=== PATIENT | female | born 1990 | race African-American/Black ===

== ENCOUNTER 2016-09-29 14:21 | Emergency (ER) | payer OTHER ==
[~2016-09-29] VITALS: Ht 160 cm; Wt 67.1 kg
[~2016-09-29 14:21] MED LIST: AMOXICILLIN 50500 M1 PO; BACTRIM DS TAB1 EACH PO; FLONASE 0.05%50 MCG NASAL; IBUPROFEN 600600 M1 PO; NOHOMEMEDICATIONS; PHENERGAN 25 MG25 M1 PO
[2016-09-29 14:45] LABS: URINE BILIRUBIN NEGATIVE (Negative); URINE BLOOD NEGATIVE (Negative); URINE COLOR YELLOW; URINE GLUCOSE-RANDOM* NEGATIVE (Negative); URINE KETONES TRACE (Negative); URINE NITRITE NEGATIVE (Negative); URINE PROTEIN (DIPSTICK) NEGATIVE (Negative); URINE SPECIFIC GRAVITY >= 1.030 (1.003-1.035)
[2016-09-29 14:46] LABS: BASOPHILS 0.3 % (0.0-2.0); EOSINOPHILS 0.6 % (0.0-3.0); HEMATOCRIT 38.5 % (37.0-47.0); HEMOGLOBIN 13.5 gm/dL (12.0-15.0); LYMPHOCYTES 20.2 % (24.0-44.0); MCV 85.8 fL (80.0-100.0); MONOCYTES 5.1 % (1.0-8.0); PLATELET COUNT 208 thou/uL (150-400); POLYS 73.8 % (36.0-66.0); RBC 4.49 mil/uL (4.20-5.00); RDW 13.1 % (10.5-14.5); WBC 8.2 thou/uL (4.0-11.0)
[2016-09-29 14:47] LABS: MANUAL DIFF NO
[2016-09-29 14:53] LABS: CALCIUM 9.1 mg/dL (8.5-10.1); CREATININE 0.8 mg/dL (0.6-1.3); POTASSIUM 3.9 mmol/L (3.5-5.1)
[2016-09-29] MEDS ORDERED: ONDANSETRON HCL4 M2 PO (15:45)
[2016-09-29 15:59] VITALS: BP 122/73
== END 2016-09-29 15:59 | disposition home or self-care (01) ==
LOC: ER 14:21
PROVIDERS: Nurse Practitioner
DX: O26.891 Other specified pregnancy related conditions, first trimester (principal); Z3A.13 13 weeks gestation of pregnancy; J45.998 Other asthma

== ENCOUNTER 2016-11-08 19:44 | Emergency (ER) | payer OTHER ==
[~2016-11-08] VITALS: Ht 160 cm; Wt 69.0 kg
[~2016-11-08 19:44] MED LIST changes: +ONDANSETRON HCL4 M2 PO
[2016-11-08 20:10] LABS: URINE BILIRUBIN NEGATIVE (Negative); URINE BLOOD 3+ (Negative); URINE COLOR YELLOW; URINE GLUCOSE-RANDOM* NEGATIVE (Negative); URINE KETONES NEGATIVE (Negative); URINE NITRITE NEGATIVE (Negative); URINE PROTEIN (DIPSTICK) NEGATIVE (Negative); URINE SPECIFIC GRAVITY >= 1.030 (1.003-1.035)
[2016-11-08 20:18] LABS: ABSOLUTE NEUTROPHILS 6.3 thou/uL (1.4-8.2); BASOPHILS 0.4 % (0.0-2.0); EOSINOPHILS 0.8 % (0.0-3.0); HEMATOCRIT 37.2 % (37.0-47.0); HEMOGLOBIN 13.1 gm/dL (12.0-15.0); LYMPHOCYTES 22.6 % (24.0-44.0); MCH 30.2 pg (26.0-34.0); MCHC 35.2 g/dL (28.0-37.0); MCV 85.9 fL (80.0-100.0); MONOCYTES 5.2 % (1.0-8.0); PLATELET COUNT 201 thou/uL (150-400); RBC 4.34 mil/uL (4.20-5.00); WBC 8.8 thou/uL (4.0-11.0)
[2016-11-08 20:21] LABS: MANUAL DIFF NO
[2016-11-08 20:23] LABS: SQUAMOUS >10 Many /LPF (0-3)
[2016-11-08 20:24] LABS: CASTS None Seen /LPF (None Seen); CRYSTALS None Seen /LPF (None Seen); URINE RBC 3-10 Few /HPF (0-2); URINE WBC 0-5 Rare /HPF (0-5)
[2016-11-08 20:27] LABS: CALCIUM 8.6 mg/dL (8.5-10.1); CREATININE 0.6 mg/dL (0.6-1.0); POTASSIUM 3.5 mmol/L (3.5-5.1)
[2016-11-08 20:43] LABS: TOTAL BILIRUBIN 0.4 mg/dL (<0.1-1.0); TOTAL PROTEIN 6.5 g/dL (6.4-8.2)
[2016-11-08 21:26] VITALS: BP 134/79
[2016-11-09 19:09] LABS: CHLAMYDIA TRACHOMATIS-PCR Negative (Negative); NEISSERIA GONORRHEA-PCR Negative (Negative)
== END 2016-11-08 21:45 | disposition home or self-care (01) ==
LOC: ER 19:44
PROVIDERS: Physician Assistant
DX: O20.0 Threatened abortion (principal); Z3A.18 18 weeks gestation of pregnancy; J45.998 Other asthma

== ENCOUNTER 2020-04-23 03:29 | Emergency (ER) | payer OTHER ==
[~2020-04-23] VITALS: Ht 162.6 cm; Wt 63.5 kg
[2020-04-23] MEDS ORDERED: CIPROFLOXACIN500 M1 PO (04:16)
[2020-04-23 04:29] VITALS: BP 125/87
== END 2020-04-23 04:29 | disposition home or self-care (01) ==
LOC: ER 03:29
DX: H60.92 Unspecified otitis externa, left ear (principal)